=== PATIENT | male | born 1990 | race Caucasian/White ===

== ENCOUNTER 2017-12-28 10:33 | Emergency (ER) | payer MEDICAID, OTHER ==
--- NOTE | 2017-12-28 11:14 | EDPHY ---
H & P Stated Complaint: back pain x2 weeks, concerned about kidneys, cough/sinus issues Time Seen by Provider: 12/28/17 10:46 HPI/ROS: CHIEF COMPLAINT: Cough, sinus congestion to low back pain "I am worried about my kidneys" HISTORY OF PRESENT ILLNESS: 27-year-old immunocompetent male, no tobacco use, daily cannabis concentrate inhalation, arrives via private vehicle complaining of 6 weeks of nasal congestion, nonproductive cough, sore throat. He feels like the symptoms are becoming progressively improved. No dyspnea. No chest pain. No abdominal pain. No nausea or vomiting. He also notes that for the past 2 weeks he has been experiencing low back pain primarily in the morning, moderate relief with oral Aleve. No incontinence. No retention. No saddle anesthesia. No trauma or fall. No radiculopathy. No foot drop. No fever or chills. No flu-like symptoms. PRIMARY CARE PROVIDER: REVIEW OF SYSTEMS: A ten point review of systems was performed and is negative with the exception of the items mentioned in the HPI PAST MEDICAL & SURGICAL HISTORY: No pertinent medical or surgical history SOCIAL HISTORY: Daily cannabis concentrated inhalation PHYSICAL EXAM (Prior to examination, patient consented to physical exam, hands were washed and my usual and customary physical exam procedures followed) 1) GENERAL: Well-developed, well-nourished, alert and oriented. Appears to be in no acute distress. 2) HEAD: Normocephalic, atraumatic 3) HEENT: Pupils equal, round, reactive to light bilaterally. Sclera anicteric. Nasopharynx, oropharynx, clear, no lesions. No tonsillar enlargement or exudate. 4) NECK: Full range of motion, no meningeal signs. 5) LUNGS: Clear auscultation bilaterally, no wheezes, no rhonchi, no retractions. 6) HEART: Regular rate and rhythm, no murmur, no heave, no gallop. 7) ABDOMEN: No guarding, no rebound, no focal tenderness, negative McBurney's, negative Street's, negative Rovsing's, negative peritoneal sign, 8) MUSCULOSKELETAL: Moving all extremities, no focal areas of tenderness, no obvious trauma. No peripheral edema or discoloration. 9) BACK: tender to palpation paraspinous lumbar muscle. No CVA tenderness, no midline vertebral tenderness, no fluctuance, no step-off, no obvious trauma, no visual or palpable abnormality. Patella, Achilles reflexes intact to bilateral strength 5/5 10) SKIN: No rash, no petechiae. 11) NEURO: Awake, alert, and oriented to person, place and time. Answers questions appropriately. There were no obvious focal neurologic abnormalities. No cerebellar dysfunction. Normal steady gait. Upper and lower extremities bilaterally with strength 5 / 5, reflexes 2+.. DIFFERENTIAL DIAGNOSIS: In no particular order, including but not limited to, fracture, sprain/strain, cauda equina, spinal infectious etiology. - Personal History Current Tetanus Diphtheria and Acellular Pertussis (TDAP): Unsure Tetanus Vaccine Date: < 10 - Medical/Surgical History Hx Asthma: No Hx Chronic Respiratory Disease: No Hx Diabetes: No Hx Cardiac Disease: No Hx Renal Disease: No Hx Cirrhosis: No Hx Alcoholism: No Hx HIV/AIDS: No Hx Splenectomy or Spleen Trauma: No Other PMH: HERNIA, R SHOULDER SURGERY, L ARM SURGERY, R WRIST SURGERY - Social History Smoking Status: Never smoked Constitutional: Initial Vital Signs Temperature (C) 36.4 C 12/28/17 10:39 Heart Rate 69 12/28/17 10:39 Respiratory Rate 18 12/28/17 10:39 Blood Pressure 127/82 H 12/28/17 10:39 O2 Sat (%) 94 12/28/17 10:39 O2 Delivery Mode Room Air Allergies/Adverse Reactions: No Allergies [NKDA] Allergy (Verified 03/16/15 23:58) Home Medications: Medication Instructions Recorded Cyclobenzaprine [Flexeril 10 MG 10 mg PO TID #10 tab 12/28/17 (RX)] Medical Decision Making ED Course/Re-evaluation: 11:13 a.m.: Will obtain dip urinalysis . Patient states that he is feeling progressive improvement his URI symptoms and does not want further intervention antibiotics 11:50 a.m.: Dip urinalysis is negative for pyuria or bacteria or blood. Regarding the patient's low back pain, informed the patient that at this time I have a lower index of suspicion for cauda equina, epidural abscess, epidural hematoma, lumbar myositis, diskitis, as the patient is neurologically intact in the lower extremities, has patella and Achilles reflexes intact and equal bilaterally, has no neurologic deficits, no incontinence, no retention, no midline pain, no fluctuance, afebrile, no flulike symptoms. Pain may be secondary to muscular strain, may be secondary to discogenic etiology. At this point I do not identify definitive indication for emergent MRI, however patient may necessitate this on an outpatient basis. Patient given acute back pain precautions. Patient feels comfortable being discharged. Usual and customary discharge precautions instructions provided. Care of patient under supervision of secondary supervising physician Dr Hess Departure - Departure Disposition: Home, Routine, Self-Care Clinical Impression: Low back pain Qualifiers: Chronicity: acute Back pain laterality: bilateral Sciatica presence: without sciatica Qualified Code(s): M54.5 - Low back pain Upper respiratory infection Qualifiers: URI type: unspecified viral URI Qualified Code(s): J06.9 - Acute upper respiratory infection, unspecified Condition: Good Instructions: Upper Respiratory Infection (DC), Acute Low Back Pain (ED) Additional Instructions: Seek medical attention if you develop new or worsening pain, if you develop bladder or bowel dysfunction, numbness around your perineum, foot drop, or any other symptoms that concern you. Referrals: Emily Rojas MD [Medical Doctor] - 2-3 days, call for appt. Prescriptions: Cyclobenzaprine [Flexeril 10 MG (RX)] 10 mg PO TID #10 tab
[2017-12-28 12:08] VITALS: BP 134/84
== END 2017-12-28 12:08 | disposition home or self-care (01) ==
DX: J06.9 Acute upper respiratory infection, unspecified (principal); M54.5 Low back pain